=== PATIENT | male | born 1965 | race Two or more races ===

== ENCOUNTER 2018-01-19 04:43 | Emergency (ER) | payer SELFPAY ==
[2018-01-19 04:57] VITALS: BMI 41.1
[2018-01-19 05:02] VITALS: BP 132/75; PULSE 77; RESP 16; TEMP 98.6; O2SAT 96
--- NOTE | 2018-01-19 05:10 | ED PDOC ---
HPI: General Adult Time Seen by Provider: 01/19/18 04:57 Chief Complaint (Nursing): Abnormal Skin Integrity Chief Complaint (Provider): RASH History Per: Patient (53 Y/O MALE HERE RIGHT FLANK PAIN INTERMITTENT X 3 DAYS NOW NOTED WITH RASH. PATIENT STATES HE HAS H/O SHINGLES BUT HAS NOT HAD EPISODE IN 15 YEARS. STATES HE SPOKE WITH HIS MOTHER WHO ADVISED HIM TO REQUEST VALTREX/PREDNISONE/PERCOCET.) Past Medical History Reviewed: Historical Data, Nursing Documentation, Vital Signs Vital Signs: Last Vital Signs Temp 98.6 F 01/19/18 04:58 Pulse 77 01/19/18 04:58 Resp 16 01/19/18 04:58 BP 132/75 01/19/18 04:58 Pulse Ox 96 01/19/18 04:58 - Family History Family History: States: No Known Family Hx - Allergies Allergies/Adverse Reactions: Allergies Allergy/AdvReac Type Severity Reaction Status Date / Time No Known Allergies Allergy Verified 01/19/18 04:57 Review of Systems ROS Statement: Except As Marked, All Systems Reviewed And Found Negative Skin: Positive for: Rash Physical Exam - Reviewed Nursing Documentation Reviewed: Yes Vital Signs Reviewed: Yes - Physical Exam Appears: Positive for: Well, Non-toxic, No Acute Distress Head Exam: Positive for: ATRAUMATIC, NORMAL INSPECTION, NORMOCEPHALIC Skin: Positive for: Normal Color, Warm, Rash (OLD DRIED LESIONS NOTED ON ERYTHEMATOUS BASE EPIGASTRIC REGION. SMALL ERYTHEMATOUS REGION RIGHT THORACIC REGION) Eye Exam: Positive for: EOMI, Normal appearance, PERRL ENT: Positive for: Normal ENT Inspection Neck: Positive for: Normal, Painless ROM Cardiovascular/Chest: Positive for: Regular Rate, Rhythm Respiratory: Positive for: CNT, Normal Breath Sounds Gastrointestinal/Abdominal: Positive for: Normal Exam, Soft Back: Positive for: Normal Inspection Extremity: Positive for: Normal ROM Neurologic/Psych: Positive for: Alert, Oriented - ECG O2 Sat by Pulse Oximetry: 96 - Progress ED Course And Treament: D/W PATIENT THAT WE CAN GIVE HIM NAPROXEN RX FOR PAIN. PATIENT INSISTENT FOR PERCOCET. D/W PATIENT THAT WE CAN GIVE HIM ONE DOSE OF PERCOCET IN ED FOR PAIN AND START HIM ON PREDNISONE/VALTREX/NAPROXEN. PATIENT LEFT ED WITHOUT PRESCRIPTIONS. Disposition - Clinical Impression Clinical Impression: Shingles - Patient ED Disposition Is Patient to be Admitted: No - Disposition Disposition: Left W/O Treatment Disposition Time: 05:12 Condition: FAIR Instructions: Isidra BELL)
== END 2018-01-19 05:06 | disposition left against medical advice (07) ==
LOC: H.ER 04:43
DX: B02.9 Zoster without complications (principal)